=== PATIENT | female | born 1975 | race Caucasian/White ===

== ENCOUNTER 2017-11-23 21:11 | Emergency (ER) | payer MEDICARE ==
[~2017-11-23] VITALS: Ht 157.5 cm; Wt 79.5 kg
[2017-11-23 21:40] VITALS: Ht 157.5 cm; Wt 79.5 kg
[2017-11-23] MEDS ORDERED: RIOMET500 MG/5 M (21:42)
[2017-11-23] MEDS ORDERED: COUMADIN4 MG PO (21:43)
[2017-11-23] MEDS ORDERED: NEURONTIN 300300 MG PO (21:43)
[2017-11-23] MEDS ORDERED: DESERYL50 M2 (21:43)
[2017-11-23] MEDS ORDERED: HYDROCODON-ACE1 EAC7 PO (21:43)
[2017-11-23] MEDS ORDERED: PROTONIX40 MG PO (21:43)
[2017-11-23] MEDS ORDERED: EFFEXOR75 MG PO (21:44)
[2017-11-23] MEDS ORDERED: SINGULAIR10 MG PO (21:44)
[2017-11-23] MEDS ORDERED: CARTIA XT120 MG (21:44)
[2017-11-23] MEDS ORDERED: PRINIVIL20 MG (21:44)
[2017-11-23] MEDS ORDERED: FUROSEMIDE40 MG PO (21:44)
[2017-11-23] MEDS ORDERED: ZANAFLEX4 MG PO (21:45)
[2017-11-23] MEDS ORDERED: TORADOL10 MG PO (22:10)
[2017-11-23 22:20] VITALS: BP 111/71
== END 2017-11-23 22:20 | disposition home or self-care (01) ==
LOC: D.ER 21:11
DX: S46.911A Strain of unspecified muscle, fascia and tendon at shoulder and upper arm level, right arm, initial encounter (principal); X58.XXXA Exposure to other specified factors, initial encounter; Y93.89 Activity, other specified; Y92.89 Other specified places as the place of occurrence of the external cause; E11.9 Type 2 diabetes mellitus without complications; I10 Essential (primary) hypertension; Z95.0 Presence of cardiac pacemaker; J44.9 Chronic obstructive pulmonary disease, unspecified; K21.9 Gastro-esophageal reflux disease without esophagitis; F17.200 Nicotine dependence, unspecified, uncomplicated

== ENCOUNTER 2020-08-15 16:53 | Emergency (ER) | payer MEDICARE ==
[~2020-08-15] VITALS: Ht 157.5 cm; Wt 93.2 kg
[~2020-08-15 16:53] MED LIST: CARTIA XT120 MG; COUMADIN4 MG PO; DESERYL50 M2; EFFEXOR75 MG PO; FUROSEMIDE40 MG PO; HYDROCODON-ACE1 EAC7 PO; NEURONTIN 300300 MG PO; PRINIVIL20 MG; PROTONIX40 MG PO; RIOMET500 MG/5 M; SINGULAIR10 MG PO; TORADOL10 MG PO; ZANAFLEX4 MG PO
[2020-08-15 17:29] VITALS: Ht 157.5 cm; Wt 93.2 kg
[2020-08-15 18:10] LABS: BASOPHILS 1.7 % (0-2); EOSINOPHILS 1.2 % (0-7); HEMATOCRIT 37.5 % (36.0-48.0); HEMOGLOBIN 12.6 g/dL (12-16); LYMPHOCYTES 25.6 % (15-50); MCH 31.5 pg (26.0-34.0); MCHC 33.7 g/dL (31.0-37.0); MCV 93.6 fL (80.0-100.0); MEAN PLATELET VOLUME 8.4 fL (7.4-10.4); MONOCYTES 7.2 % (2-11); NEUTROPHILS 64.3 % (40-80); PLATELET COUNT 341 10x3/uL (130-400); RBC 4.01 10x6/uL (4.00-5.40); RDW 15.3 % (11.5-14.5); WBC 10.9 10x3/uL (4.8-10.8)
[2020-08-15 18:27] LABS: BILIRUBIN - TOTAL 0.41 mg/dL (0.2-1.3); CALCIUM 8.6 mg/dL (8.5-10.1); CREATININE - SERUM 0.9 mg/dL (0.6-1.3); POTASSIUM - SERUM 3.7 mmol/L (3.5-5.1); PROTEIN - SERUM 7.3 g/dL (6.4-8.2)
[2020-08-15 18:31] LABS: ANION GAP 14.3 mmol/L (8-16); CARBON DIOXIDE 25.4 mmol/L (21.0-32.0)
[2020-08-15 18:45] LABS: APTT 65.7 SECONDS (22.8-39.4); INR 2.4 (0.85-1.17); PROTIME 24.3 SECONDS (11.6-15.0)
[2020-08-15 21:18] VITALS: BP 136/86
== END 2020-08-15 21:16 | disposition home or self-care (01) ==
LOC: D.ER 16:53
PROVIDERS: Family Medicine
DX: K91.840 Postprocedural hemorrhage of a digestive system organ or structure following a digestive system procedure (principal); J44.9 Chronic obstructive pulmonary disease, unspecified; I10 Essential (primary) hypertension; E11.9 Type 2 diabetes mellitus without complications; K21.9 Gastro-esophageal reflux disease without esophagitis; Z72.0 Tobacco use; Z79.84 Long term (current) use of oral hypoglycemic drugs